=== PATIENT | male | born 2000 | race African-American/Black ===

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

== ENCOUNTER 2019-10-06 23:50 | Emergency (ER) | payer SELFPAY ==
[~2019-10-06] VITALS: Ht 165.1 cm; Wt 77.0 kg
[2019-10-07 02:04] VITALS: BP 125/79
== END 2019-10-07 02:05 | disposition home or self-care (01) ==
LOC: ER 23:50
DX: J02.9 Acute pharyngitis, unspecified (principal); F17.200 Nicotine dependence, unspecified, uncomplicated; F12.10 Cannabis abuse, uncomplicated; F15.10 Other stimulant abuse, uncomplicated
CPT/HCPCS: 99283